=== PATIENT | male | born 1970 | race Caucasian/White ===

== ENCOUNTER → 2020-06-17 | Outpatient (CLI) | payer BC ==
--- NOTE | 2020-06-17 17:13 | Diagnostic Imaging Report ---
PROCEDURE: CT sinuses without contrast. TECHNIQUE: Multiple contiguous axial images were obtained through the sinuses without the use of intravenous contrast. Coronal and sagittal reformations were then performed. Auto Exposure Controls were utilized during the CT exam to meet ALARA standards for radiation dose reduction. INDICATION: Deviated septum. COMPARISON: None. FINDINGS: Marked leftward deviation of the nasal septum. No nasal septal perforation. The ostiomeatal units and frontal recesses are patent. No large ankit bullosa. Paranasal sinuses are clear. Normal alignment of the temporomandibular joints. Skull base is intact. The right mastoid is poorly pneumatized compared to the contralateral side. IMPRESSION: Marked leftward deviation of the nasal septum. No nasal septal perforation. Dictated by: Dictated on workstation # [id number]
== END ==
LOC: RAD FS 13:09
PROVIDERS: ATTEND Otolaryngology Otolaryngology/Facial Plastic Surgery
DX: J34.2 Deviated nasal septum (principal); J34.3 Hypertrophy of nasal turbinates
CPT/HCPCS: 70486

== ENCOUNTER → 2020-07-04 | Outpatient (CLI) | payer SELFPAY ==
--- NOTE | 2020-07-04 11:34 | Diagnostic Imaging Report ---
CT cardiac calcium score. Indication: Essential hypertension Routine images of the heart were obtained using the CT cardiac calcium score protocol. There are no prior studies available for comparison. The CT calcium score is 218.7 (please see attached report). The heart itself is not enlarged. The aorta is slightly dilated measuring 4.1 cm in maximum AP and transverse diameters (normal 4.0 cm or less). There is no obvious mediastinal or hilar adenopathy. The lungs, were visualized are clear. There is no evidence of failure, pneumonia or for pleural effusion. There is no parenchymal lung mass identified. The images through the upper abdomen are unremarkable for an acute abnormality. The bone windows show no sign of a fracture or of a destructive lesion. Impression: 1. The cardiac calcium score is 218.7. Please see attached report. 2. There is no acute cardiopulmonary abnormality noted. 3. There is borderline aneurysmal dilatation of the ascending aorta. Dictated by: Dictated on workstation # [id number]
== END ==
LOC: RAD FS 09:44
PROVIDERS: ATTEND Family Medicine
DX: I10 Essential (primary) hypertension (principal)
CPT/HCPCS: 75571

== ENCOUNTER 2020-08-08 05:41 | Outpatient (CLI) | payer BC ==
[~2020-08-08] VITALS: Ht 167 cm; Wt 95.4 kg
[2020-08-08] MEDS ORDERED: LISI20TA26 PO (11:46)
[2020-08-08] MEDS ORDERED: FAMO20TA3 PO (11:46)
[2020-08-08] MEDS ORDERED: ASPI-999 PO (11:46)
[2020-08-08] MEDS ORDERED: ROSU20TA32 PO (11:46)
== END 2020-08-08 11:59 | disposition home or self-care (01) ==
LOC: PREOP 05:41
PROVIDERS: ATTEND Otolaryngology Otolaryngology/Facial Plastic Surgery
DX: Z01.818 Encounter for other preprocedural examination (principal)

== ENCOUNTER 2020-08-15 07:15 | Day surgery (SDC) | payer BC ==
[2020-08-15] VITALS (9 sets, daily range): BP systolic 125–164; BP diastolic 90–105
[~2020-08-15] VITALS: Ht 167 cm; Wt 95.4 kg
[~2020-08-15 07:15] MED LIST: ASPI-999 PO; FAMO20TA3 PO; LISI20TA26 PO; ROSU20TA32 PO
[2020-08-15] MEDS: LACTATED RINGERS 1,000 ML IV PRN ×2 (07:56→09:47)
--- NOTE | 2020-08-15 07:56 | Progress Note-Pre Operative ---
Pre-Operative Progress Note H&P Reviewed The H&P was reviewed, patient examined and no changes noted. Date Seen by Provider: August 15, 2020 Time Seen by Provider: 08:00 Date H&P Reviewed: August 15, 2020 Time H&P Reviewed: 08:00 Pre-Operative Diagnosis: Deviated Nasal Septum, Bilat Hyper of INf Turbs JOSH ROLLINS MD August 15, 2020 07:56
[2020-08-15] MEDS ORDERED: COCAINE HCL 4% 2 ML SYR ONE (08:03)
[2020-08-15] MEDS ORDERED: PHENYLEPHRINE 0.5% NASAL SPR (NEO-SYNEPHRINE) REG ONE (08:03)
[2020-08-15] MEDS ORDERED: LIDOCAINE/EPI 1%-1:100,000 (XYLOCAINE) 20ML ONE (08:03)
[2020-08-15] MEDS ORDERED: SEVOFLURANE (ULTANE) 15 ML INHAL SOLN ONE ×2 (08:24→10:12)
[2020-08-15] MEDS ORDERED: ROCURONIUM 10 MG/ML 5 ML SYRINGE IV ONE (08:24)
[2020-08-15] MEDS ORDERED: LIDOCAINE PF 2% 5 ML (XYLOCAINE) VIAL ONE (08:24)
[2020-08-15] MEDS ORDERED: ONDANSETRON 4 MG/2 ML (SDV) Z0FRAN ONE (08:24)
[2020-08-15] MEDS ORDERED: NEOSTIGMINE 3 MG/3 ML VIAL ONE (08:24)
[2020-08-15] MEDS ORDERED: MIDAZOLAM 2 MG/2 ML (VERSED) VIAL ONE (08:24)
[2020-08-15] MEDS ORDERED: fentaNYL INJ 100 MCG/2 ML AMP ONE (08:24)
[2020-08-15] MEDS ORDERED: proPOfol 200 MG/20 ML (DIPRIVAN) VIAL IV ONE (08:24)
[2020-08-15] MEDS ORDERED: GLYCOPYRROLATE 0.2 MG/ML (ROBINUL) 2 ML VIAL ONE (08:24)
[2020-08-15] MEDS ORDERED: PHENYLEPHRINE 100 MCG/ML 10 ML (ANESTHESIA) SYR ONE (09:08)
[2020-08-15] MEDS ORDERED: HYDROmorphone 2 MG/ML VIAL (DILAUDID) ONE (09:37)
--- NOTE | 2020-08-15 09:54 | Progress Note-Post Operative ---
Post-Operative Progess Note Surgeon (s)/[employer] Deputy Director (s) Surgeon JOSH ROLLINS MD [employer] Deputy Director n/a Pre-Operative Diagnosis Deviated Nasal Septum, Bilat Hyper of INf Turbs Post-Operative Diagnosis same Post-Op Procedure Note Date of Procedure: August 15, 2020 Name of Procedure Performed: Nasal Septoplasty, Bilt Partial REduction of the INf Turbinates Description & Findings Description and Findings: n/a Anesthesia Type get Estimated Blood Loss minimal Packing none. Specimen(s) collected/removed nasal septum JOSH ROLLINS MD August 15, 2020 09:54
[2020-08-15] MEDS ORDERED: D5 1/2 NS W/KCL 20 MEQ/L 1,000 ML IV SCH (10:00)
[2020-08-15] MEDS ORDERED: HYDROcodone/APAP 5 MG/325 MG (LORTAB) TAB PO PRN (10:00)
[2020-08-15] MEDS ORDERED: PROMETHAZINE INJ 25 MG/ML (PHENERGAN) AMP IVP PRN (10:00)
[2020-08-15] MEDS ORDERED: ACETAMINOPHEN 325 MG TABLET PO PRN (10:00)
[2020-08-15] MEDS ORDERED: morphine INJ 10 MG/ML 1ML (SYR OR VIAL) IVP ONE (10:15)
[2020-08-15] MEDS ORDERED: ONDANSETRON 4 MG/2 ML (SDV) Z0FRAN IVP PRN (10:15)
[2020-08-15] MEDS ORDERED: HYDROmorphone 2 MG/ML VIAL (DILAUDID) IV ONE (10:15)
[2020-08-15] MEDS ORDERED: AMOX-355 PO (11:34)
[2020-08-15] MEDS ORDERED: ACHD5005 PO (11:34)
--- NOTE | 2020-08-16 10:30 | Anesthesia-General Post-Op ---
General Patient Condition Mental Status/LOC: Same as Preop Cardiovascular: Satisfactory Nausea/Vomiting: Absent Respiratory: Satisfactory Pain: Controlled Complications: Absent Post Op Complications Complications None Follow Up Care/Instructions Patient Instructions None needed. Anesthesia/Patient Condition Patient Condition Patient was seen yesterday after the procedure and he was doing well, no complaints, stable vital signs, no apparent adverse anesthesia problems. BANDAR TAPIA DO August 16, 2020 10:30
== END 2020-08-15 12:20 | disposition home or self-care (01) ==
LOC: SDC 07:15
PROVIDERS: ATTEND Otolaryngology Otolaryngology/Facial Plastic Surgery
DX: J34.2 Deviated nasal septum (principal); J34.89 Other specified disorders of nose and nasal sinuses; J34.3 Hypertrophy of nasal turbinates; R09.81 Nasal congestion; K21.9 Gastro-esophageal reflux disease without esophagitis; G62.9 Polyneuropathy, unspecified; E78.5 Hyperlipidemia, unspecified; I10 Essential (primary) hypertension; E66.9 Obesity, unspecified; F17.210 Nicotine dependence, cigarettes, uncomplicated; Z79.82 Long term (current) use of aspirin; Z68.34 Body mass index [BMI] 34.0-34.9, adult; Z79.899 Other long term (current) drug therapy
CPT/HCPCS: 87081

== ENCOUNTER 2020-09-05 13:55 | Outpatient (CLI) | payer BC ==
[~2020-09-05 13:55] MED LIST changes: +ACHD5005 PO; +AMOX-355 PO
== END 2020-09-05 14:31 | disposition home or self-care (01) ==
LOC: SLEEP 13:55
PROVIDERS: ATTEND Otolaryngology Otolaryngology/Facial Plastic Surgery
DX: G47.33 Obstructive sleep apnea (adult) (pediatric) (principal)
CPT/HCPCS: G0399